=== PATIENT | female | born 1940 | race Caucasian/White ===

== ENCOUNTER 2017-05-29 14:47 | Emergency (ER) | payer OTHER ==
--- NOTE | ~2017-05-29 | CR72 ---
[facility] A Service [facility] RADIOLOGY TEXT RESULTS PATIENT: AUSTYN WILKINSON LOCATION: [facility] : 44 UNIT #: [id number] AGE: [address]: Lisa Estrada MD SEX: F ORDER DR: [id number] [facility] [address] [place], [place] [address] [id number] MR#: [id number] #: [id number] NAME: AUSTYN WILKINSON. : 1940 SEX: F STUDY DATE/TIME: 05/29/2017 17:34 UNIT: [facility] ROOM: STUDY DESCRIPTION: CR Chest Single View Portable Attending Physician: Lisa Estrada M.D. Ordering Physician: Lisa Estrada M.D. Primary Care Physician: Faizan Davila M.D. MEDICAL IMAGING REPORT This report is preliminary unless electronic signature is present EXAM Chest portable. 05/29/2017. 1734 hours. HISTORY 76-year-old woman complaining of left-sided chest pain radiating to the posterior chest for 3 weeks. No reported injury. COMPARISON 06/07/2015 FINDINGS Upright portable chest demonstrates normal heart size with stable tortuous aorta. There are benign densely calcified right paratracheal, azygos and right hilar region nodes with calcified granuloma in the right upper lobe. There is a new left mid lung nodule projecting lateral to the left hilum, measuring 1.5 cm. This is not seen on the prior study and is, therefore, concerning for tumor, either primary or metastatic. No definite rib or pleural lesion. IMPRESSION 1. There is a new 1.5 cm nodule in the left mid lung, just lateral to the left hilum, not seen on 06/07/2015. This is concerning for tumor, either primary or metastatic. Followup chest CT is recommended. 2. Stable underlying calcified granulomatous nodes and right-sided calcified granulomata in the lungs. Dictated by... Ivy Courtney M.D. [facility] A Service of [facility] RADIOLOGY TEXT RESULTS PATIENT: AUSTYN WILKINSON LOCATION: [facility] #: [id number] : 44 UNIT #: [id number] AGE: [address]: Lisa Estrada MD SEX: F ORDER DR: THIS IS AN ELECTRONICALLY VERIFIED REPORT Ivy Courtney M.D. at 05/30/2017 9:35 AM Jhonny TD: 05/29/2017 17:57 JOB #: [id number] MEDICAL IMAGING REPORT Page 1 of 1 COPY
--- NOTE | ~2017-05-29 | EKG ---
PATIENT: AUSTYN WILKINSON UNIT #: [id number] Ventricular Rate: 81 BPM Atrial Rate: 81 BPM P-R Interval: 122 ms QRS Duration: 80 ms Q-T Interval: 366 ms QTC Calculation(Bezet): 425 ms P [place]: 31 degrees Calculated R [place]: 39 degrees Calculated T [place]: 61 degrees Diagnosis Line: Normal sinus rhythm Diagnosis Line: Possible Anterior infarct (cited on or before Diagnosis Line: 29-MAY-2017) Diagnosis Line: Abnormal ECG Diagnosis Line: When compared with ECG of 14-JUL-2014 18:51, Diagnosis Line: No significant change was found Diagnosis Line: Confirmed by DREW VILCHIS MD ([id number]) on Diagnosis Line: 05/31/2017 7:56:29 AM INTERPRETING MD: DENG LIVINGSTON
[~2017-05-29 14:47] MED LIST: ACETAMINOPHEN PR; ALBUTEROL17 GM INH; ANTIVERT PO; ASPIRIN PO; ASPIRIN81 M1 PO; ATIVAN PO; ATIVAN2 M1 PO; ATIVAN2 MG PO; AZITHROMYCIN500 MG PO; GLUCOPHAGE XR500 MG PO; GLUCOPHAGE500 MG PO; LEVAQUIN PO; LORTAB 5/500 TA1 TA1 PO; METFORMIN HCL500 M1 PO; METOPROLOL PO; METOPROLOL SUC100 MG PO; NORVASC PO; PLAVIX PO; PREVPAC PA1 COMB.PKG PO; TOPROL XL PO; TOPROL XL100 MG PO; TYLENOL325 M1 PO; ZOCOR20 MG PO; ZOFRAN ODT4 MG PO
[2017-05-29 15:11] LABS: BASOPHIL# 0.1 X10e3 (0-0.3); BASOPHIL% 0.7 % (0-2.5); EOSINOPHIL# 0.2 X10e3 (0-0.7); EOSINOPHIL% 2.2 % (0.0-7.0); HEMATOCRIT 45.9 % (35.0-45.0); HEMOGLOBIN 15.7 gm/dL (12.0-16.0); LYMPHOCYTE# 0.7 X10e3 (1.0-3.5); LYMPHOCYTE% 7.8 % (17.0-45.0); MEAN CELL VOLUME 95.1 FL (83-96); MEAN CORPUSCULAR HEMOGLOBIN 32.6 PG (28-34); MEAN CORPUSCULAR HGB CONC 34.3 g/dL (30-36); MEAN PLATELET VOLUME 8.8 FL (6.5-11.5); MONOCYTE# 0.5 X10e3 (0-1.0); MONOCYTE% 5.5 % (3.0-12.0); NEUTROPHIL# 7.8 X10e3 (1.5-7.1); NEUTROPHIL% 83.8 % (40-75); PLATELET COUNT 183 X10e3 (140-420); RED BLOOD COUNT 4.83 X10e (3.90-5.30); RED CELL DISTRIBUTION WIDTH 13.4 % (11.0-15.5); WHITE BLOOD COUNT 9.3 X10e3 (4.0-10.5)
[2017-05-29 15:14] LABS: DIFF IND NO
[2017-05-29 15:35] LABS: ALBUMIN SERUM 4.1 g/dL (3.5-5.0); BILIRUBIN, DIRECT 0.1 mg/dL (0.0-0.2); BILIRUBIN,INDIRECT 0.5 mg/dL (0.0-0.9); BILIRUBIN,TOTAL 0.6 mg/dL (0.2-2.0); CALCIUM SERUM 8.8 mg/dL (8.4-10.2); GLOM FILT RATE Estimated 55.5 mL/min (>60); POTASSIUM 4.5 mmol/L (3.5-5.1); PROTEIN TOTAL SERUM 7.4 g/dL (6.0-8.3)
[2017-05-29 16:57] LABS: POC - CKMB <1.0 ng/mL (0.0-7.9); POC - TROPONIN <0.05 ng/mL (<=0.05)
[2017-05-30] MEDS ORDERED: METOPROLOL ER-1 EAC1 (00:25)
[2017-05-30] MEDS ORDERED: METFORMIN (00:25)
[2017-05-30] MEDS ORDERED: CELEXA10 M1 (00:26)
[2017-05-30] MEDS ORDERED: ASPIRIN81 MG (00:26)
[2017-05-30] MEDS ORDERED: CLOPIDOGREL75 MG (00:26)
== END 2017-05-29 17:59 | disposition left against medical advice (07) ==
LOC: CED 14:47
PROVIDERS: Emergency Medicine
DX: R91.8 Other nonspecific abnormal finding of lung field (principal); E11.9 Type 2 diabetes mellitus without complications; J44.9 Chronic obstructive pulmonary disease, unspecified; I10 Essential (primary) hypertension; F41.9 Anxiety disorder, unspecified; F17.210 Nicotine dependence, cigarettes, uncomplicated; Z90.49 Acquired absence of other specified parts of digestive tract; Z90.710 Acquired absence of both cervix and uterus; Z98.890 Other specified postprocedural states; Z86.73 Personal history of transient ischemic attack (TIA), and cerebral infarction without residual deficits; Z88.5 Allergy status to narcotic agent; Z88.8 Allergy status to other drugs, medicaments and biological substances; Z79.899 Other long term (current) drug therapy; Z79.84 Long term (current) use of oral hypoglycemic drugs; Z88.2 Allergy status to sulfonamides
CPT/HCPCS: 36415; 71010; 80048; 80076; 82553; 83880; 84484; 85025; 93005; 99285

== ENCOUNTER 2017-05-31 17:50 | Emergency (ER) | payer OTHER ==
[~2017-05-31 17:50] MED LIST changes: +ASPIRIN81 MG; +CELEXA10 M1; +CLOPIDOGREL75 MG; +METFORMIN; +METOPROLOL ER-1 EAC1
== END 2017-05-31 19:00 | disposition home or self-care (01) ==
LOC: SED 17:50
DX: T63.441A Toxic effect of venom of bees, accidental (unintentional), initial encounter (principal); F17.200 Nicotine dependence, unspecified, uncomplicated; I25.10 Atherosclerotic heart disease of native coronary artery without angina pectoris; I10 Essential (primary) hypertension; E11.9 Type 2 diabetes mellitus without complications; Z90.710 Acquired absence of both cervix and uterus; Z90.49 Acquired absence of other specified parts of digestive tract; Z23 Encounter for immunization; Z88.5 Allergy status to narcotic agent; Z88.8 Allergy status to other drugs, medicaments and biological substances; Z79.82 Long term (current) use of aspirin; Z79.899 Other long term (current) drug therapy
CPT/HCPCS: 90471; 90715; 99282